=== PATIENT | male | born 1955 | race Caucasian/White ===

== ENCOUNTER 2018-06-22 08:04 | Day surgery (SDC) | payer BC ==
[~2018-06-22] VITALS: Ht 182.9 cm; Wt 97.7 kg
[~2018-06-22 08:04] MED LIST: FLOMAX0.4 MG PO; GABAPENTIN300 MG PO; ZYRTEC10 M3 PO
[2018-06-22 09:17] VITALS: BP 137/85
[2018-06-22 11:53] VITALS: BP 165/77
[2018-06-22 12:49] VITALS: BP 141/83
[2018-06-22 16:12] LABS: HEMATOCRIT 38.7 % (38.0-50.0); HEMOGLOBIN 13.8 G/DL (12.5-16.6); MCHC 35.7 G/DL (30.0-36.0); MCV 89.8 FL (86-99); PLATELET COUNT 187 K/uL (156-360); RBC DIS.WIDTH-CV 12.4 % (11.8-14.6); RBC DIS.WIDTH-SD 40.4 % (39-53); RED BLOOD COUNT 4.31 M/uL (4.00-5.50); WHITE BLOOD COUNT 6.1 K/uL (4.1-10.2)
[2018-06-22 16:15] VITALS: BP 157/82
[2018-06-22 16:20] LABS: CHLORIDE 107 mEq/L (99-109); POTASSIUM 3.8 mEq/L (3.7-5.4); SODIUM 140 mEq/L (136-147)
[2018-06-22 16:21] LABS: MAGNESIUM 2.2 mg/dL (1.3-2.7)
[2018-06-22 16:22] LABS: GLUCOSE 150 mg/dL (70-99)
[2018-06-22 16:26] LABS: CREATININE 0.8 mg/dL (0.6-1.3); GFR ESTIMATE (CALCULATED) > 59 mL/min/ (58.99-99999)
[2018-06-22 16:27] LABS: UREA NITROGEN (BUN) 12 mg/dL (9-23)
[2018-06-22 17:22] VITALS: BP 157/79
== END 2018-06-22 17:41 | disposition home or self-care (01) ==
LOC: SDC 08:04
PROVIDERS: Internal Medicine Cardiovascular Disease
PROC: 0TC68ZZ Extirpation of Matter from Right Ureter, Via Natural or Artificial Opening Endoscopic (ICD-10-PCS; principal; 2018-06-22)
PROC: BT1D1ZZ Fluoroscopy of Right Kidney, Ureter and Bladder using Low Osmolar Contrast (ICD-10-PCS; principal; 2018-06-22)
PROC: 0T768DZ Dilation of Right Ureter with Intraluminal Device, Via Natural or Artificial Opening Endoscopic (ICD-10-PCS; principal; 2018-06-22)
PROC: 0TF68ZZ Fragmentation in Right Ureter, Via Natural or Artificial Opening Endoscopic (ICD-10-PCS; principal; 2018-06-22)
DX: N20.1 Calculus of ureter (principal); I10 Essential (primary) hypertension; I49.3 Ventricular premature depolarization; R94.31 Abnormal electrocardiogram [ECG] [EKG]; N40.0 Benign prostatic hyperplasia without lower urinary tract symptoms; N35.9 Urethral stricture, unspecified; E66.3 Overweight; Z68.29 Body mass index [BMI] 29.0-29.9, adult; Z87.891 Personal history of nicotine dependence; Z98.1 Arthrodesis status
CPT/HCPCS: 74420; 80048; 82365 90; 83735; 85027; 93005; C1769; C2625; J0690; J2250; J3010